=== PATIENT | female | born 1955 | race American Indian/Alaskan Native ===

== ENCOUNTER 2017-02-07 11:36 | Emergency (ER) | payer OTHER, MEDICAID ==
[2017-02-07 11:49] VITALS: BP 144/78
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
--- NOTE | 2017-02-07 13:11 | Cat Scan Report ---
CT HEAD WITHOUT CONTRAST: HISTORY: Head injury. Serial contiguous axial images were obtained through the cranium. Intravenous contrast material was not administered. The ventricles are normal in size and appearance. There is no mass effect or midline shift. No areas of abnormally increased or decreased attenuation are seen. No mass lesion is seen. The mastoid air cells and visualized portions of the sinuses are normal. IMPRESSION: Cranial CT scan within normal limits.
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
--- NOTE | 2017-02-07 13:13 | Cat Scan Report ---
CT SCAN OF THE thoracic SPINE: HISTORY: Back injury. TECHNIQUE: Contiguous 1.25 mm axial images of the thoracic spine were obtained. Sagittal and coronal reformatted images. FINDINGS: There is normal alignment of the thoracic spine. The body, pedicles and posterior ligaments appear normal. No evidence of fracture or subluxation is seen. The spinal canal appears normal. IMPRESSION: Unremarkable CT of the thoracic spine. No acute process is noted.
[2017-02-07] MEDS ORDERED: NORCO 7.5/325 PO ONE (14:00)
[2017-02-07] MEDS ORDERED: FLEXERIL PO ONE (14:00)
[2017-02-07] MEDS ORDERED: NORCO 7.5/325 ONE (14:00)
== END 2017-02-07 16:02 | disposition home or self-care (01) ==
LOC: ED 11:36
DX: S16.1XXA Strain of muscle, fascia and tendon at neck level, initial encounter (principal); I10 Essential (primary) hypertension; Z86.718 Personal history of other venous thrombosis and embolism; Z90.710 Acquired absence of both cervix and uterus; V89.2XXA Person injured in unspecified motor-vehicle accident, traffic, initial encounter; Y93.89 Activity, other specified; Y92.410 Unspecified street and highway as the place of occurrence of the external cause; Y99.8 Other external cause status
CPT/HCPCS: 70450; 72125; 72128

== ENCOUNTER 2018-01-28 22:56 | Inpatient (IN) | payer MEDICAID ==
[2018-01-28] MEDS ORDERED: PEPCID IV ONE ×2 (23:00→23:03)
[2018-01-28] MEDS ORDERED: HURRICAINE ONE 20% TOPICAL SPRAY MM (23:00)
[2018-01-28] MEDS ORDERED: ADRENALIN ONE ×2 (23:03→23:36)
[2018-01-28] MEDS ORDERED: S2 RACEPINEPHRINE 2.25% IH ONE (23:19)
[2018-01-28] MEDS ORDERED: NACL 0.9% 1000 ML 1,000 ML IV ONE (23:58)
[2018-01-28] MEDS ORDERED: ADRENALIN SUB-Q ONE (23:58)
[2018-01-29] MEDS ORDERED: S2 RACEPINEPHRINE 2.25% IH ONE
[2018-01-29] MEDS ORDERED: ADRENALINE P/F IM ONE
--- NOTE | 2018-01-29 00:04 | Emergency Department Report ---
ED Allergic Reaction HPI - General Stated complaint: ALLERGIC REACTION Time Seen by Provider: 01/28/18 23:56 - History of Present Illness Initial Comments: Patient brought in by EMS with sudden onset of severe respiratory distress with swelling of her tongue and throat shortly after using food additive while cooking, which she had never used before. She finds it difficult to talk, and although she has adequate respirations, finds it difficult to breathe, with increased worker breathing because of swelling in the throat. She has a history of hypertension, but she does not take any Ralf inhibitors. She is otherwise been in good general health, and has had no significant allergies such as this previously. EMS found patient in significant distress, started IV, gave patient 50 mg of Benadryl intravenously, supplemental oxygen by mask, transported here rapidly. Patient was in significant distress at time of arrival, and was administered 0.3 mg of epinephrine intramuscularly, followed by 125 mg of Solu-Medrol intravenously, and 20 mg of famotidine intravenously. Patient continued to have significant difficulty breathing, and on initial examination, had moderately significant angioedema of the tongue, with reported by EMS that there was some facial angioedema around the cheeks, but that this had significantly subsided on recheck after initial treatment in the emergency department. Despite patient's difficulty with breathing, she maintained stable vital signs, including stable oxygen saturation at 99-100% on nasal cannula, pulse of 95-99, and blood pressure of 150 160/90. Patient was also given inhalation of racemic epinephrine by face mask, and epinephrine was repeated as well. After approximately 30 minutes, patient was much calmer, was breathing better, and could actually speak words and sentences, which she could not do on arrival. - Related Data Previous Rx's Medication Instructions Recorded Last Taken Type Methocarbamol [Robaxin TAB] 750 mg PO Q8H PRN #20 tablet 02/07/17 Unknown Rx traMADol [Ultram 50 MG tab] 50 mg PO Q4HR PRN #20 tablet 02/07/17 Unknown Rx Allergies Allergy/AdvReac Type Severity Reaction Status Date / Time aspirin Allergy Swelling Verified 02/07/17 11:51 peach Allergy Swelling Verified 02/07/17 11:51 ED Review of Systems ROS: Stated complaint: ALLERGIC REACTION Other details as noted in HPI Comment: All other systems reviewed and negative Constitutional: no symptoms reported ENT: throat pain, other Respiratory: shortness of breath, other (throat and tongue swelling). denies: wheezing Cardiovascular: denies: chest pain (throat and tongue swelling) Endocrine: no symptoms reported Gastrointestinal: as per HPI. denies: abdominal pain, nausea, vomiting Skin: as per HPI. denies: rash Neurological: denies: headache, weakness, paresthesias Psychiatric: denies: anxiety, depression Hematological/Lymphatic: denies: easy bleeding, easy bruising ED Past Medical Hx - Past Medical History Hx Hypertension: Yes Hx Heart Attack/AMI: No Hx Deep Vein Thrombosis: Yes Hx Renal Disease: No Hx Seizures: No Hx HIV: No Additional medical history: hernia - Surgical History Additional Surgical History: HERNIA REPAIR. HYSTERECTOMY. X 2 - Social History Smoking Status: Never Smoker Substance Use Type: Alcohol - Medications Home Medications: Home Medications Medication Instructions Recorded Confirmed Last Taken Type Methocarbamol [Robaxin TAB] 750 mg PO Q8H PRN #20 tablet 02/07/17 Unknown Rx traMADol [Ultram 50 MG tab] 50 mg PO Q4HR PRN #20 tablet 02/07/17 Unknown Rx ED Physical Exam - General General appearance: in distress (difficulty breathing, some trouble managing airway secretions, but good respirations) - Head Head exam: Present: atraumatic, other (obese, plethoric, difficult to assess any true angioedema) - Eye Eye exam: Present: PERRL, EOMI - ENT ENT exam: Present: other (moderate angioedema/swelling of tongue, posterior pharynx appears stable, patient tolerated secretions) - Neck Neck exam: Present: normal inspection (obese, but no mass effect,). Absent: tenderness - Respiratory Respiratory exam: Present: normal lung sounds bilaterally. Absent: wheezes, rales, rhonchi - Cardiovascular Cardiovascular Exam: Present: regular rate - GI/Abdominal GI/Abdominal exam: Present: soft, normal bowel sounds - Rectal Rectal exam: Present: deferred - Extremities Exam Extremities exam: Present: normal inspection - Neurological Exam Neurological exam: Present: alert, oriented X3, CN II-XII intact. Absent: motor sensory deficit - Psychiatric Psychiatric exam: Present: agitated (secondary to respiratory distress) - Skin Skin exam: Present: warm, dry. Absent: erythema, urticaria ED Course Vital Signs 01/28/18 01/28/18 01/28/18 23:00 23:30 23:45 Temperature 98.0 F 98.5 F Pulse Rate 86 92 H 97 H Pulse Rate [ Anterior Bilateral Throughout] Respiratory 23 19 27 H Rate Respiratory Rate [Anterior Bilateral Throughout] Blood Pressure 160/114 Blood Pressure 157/98 157/71 153/70 [Left] O2 Sat by Pulse 96 99 97 Oximetry 01/28/18 01/29/18 01/29/18 23:55 00:05 00:15 Temperature 98.3 F Pulse Rate 93 H 96 H Pulse Rate [ 99 H 99 H Anterior Bilateral Throughout] Respiratory 18 20 Rate Respiratory 24 22 Rate [Anterior Bilateral Throughout] Blood Pressure Blood Pressure 130/68 145/70 [Left] O2 Sat by Pulse 97 98 Oximetry 01/29/18 01/29/18 01/29/18 00:59 01:10 03:15 Temperature 98.0 F Pulse Rate 96 H Pulse Rate [ Anterior Bilateral Throughout] Respiratory 18 27 H Rate Respiratory Rate [Anterior Bilateral Throughout] Blood Pressure Blood Pressure 153/70 [Left] O2 Sat by Pulse 98 97 Oximetry - Reevaluation(s) Reevaluation #1: 01/29/18 00:08 Patient observed continuously from time of arrival, until time that she was breathing normally, tolerating secretions, and speaking full sentences. Oxygen saturation remained stable in the 95-100% throughout, blood pressure remained 140-160 systolic, and pulse rate remained 2090 and 100 throughout. Bedside equipment for emergent airway management from cricothyroid through nasotracheal through standard intubation equipment available, although was not needed during the resuscitation. Reevaluation #2: 01/29/18 03:54 Patient resting currently on recheck, afebrile, vital signs are stable, oxygen saturation 97%, she still has some tongue swelling, but speaks normally, and breathes quite easily, reports no acute distress. ED Medical Decision Making - Lab Data Result diagrams: 01/29/18 00:23 01/29/18 00:23 - Medical Decision Making Patient has had an acute anaphylactic reaction with upper airway swelling, predominantly tongue, but there is some questionable posterior pharyngeal swelling, although portions that I could examine appeared to be fairly normal the back area of the throat. She is significantly improved, has not needed any significant respiratory support, but she will need further observation and continue treatment if she shows signs of recurrence. - Differential Diagnosis anaphylaxis, angioedema Critical care time in (mins) excluding proc time.: 60 Critical care attestation.: If time is entered above; I have spent that time in minutes in the direct care of this critically ill patient, excluding procedure time. Critical Care Time: 60 minutes of critical care time was provided in assessing and stabilizing this patient's acute anaphylactic reaction with airway compromise. ED Disposition Clinical Impression: Acute respiratory distress Anaphylaxis due to food Qualifiers: Encounter type: initial encounter Qualified Code(s): T78.00XA - Anaphylactic reaction due to unspecified food, initial encounter Disposition: OP ADMIT IP TO THIS HOSP Is pt being admited?: Yes Does the pt Need Aspirin: No Condition: Stable Referrals: PRIMARY CARE, [Primary Care Provider] - 3-5 Days Time of Disposition: 03:58
--- NOTE | 2018-01-29 00:39 | XRay Report ---
FINAL REPORT EXAM: XR CHEST 1V AP HISTORY: Allergic Reaction COMPARISON: None available. FINDINGS: Frontal view(s) of the chest obtained. Mild cardiac enlargement. Shallow inspiration.. No gross consolidation or effusion. No pneumothorax. IMPRESSION: Mild cardiac enlargement. Shallow inspiration with crowding of the bronchovascular markings. No gross focal consolidation.
[2018-01-29 00:42] LABS: Hematocrit 26.7 % (30.3-42.9); Hemoglobin 8.1 gm/dl (10.1-14.3); Mean Corpuscular HGB Conc 30 % (30-34); Mean Corpuscular Volume 80 fl (79-97); Platelet Count 431 K/mm3 (140-440); Red Blood Count 3.34 M/mm3 (3.65-5.03)
[2018-01-29 00:53] LABS: Mean Corpuscular Hemoglobin 24 pg (28-32)
[2018-01-29 00:55] LABS: INR 0.95 (0.87-1.13)
[2018-01-29 00:58] LABS: Alanine Aminotransferase 13 units/L (7-56); Albumin 4.3 g/dL (3.9-5); BUN/Creatinine Ratio 13; Blood Urea Nitrogen 10 mg/dL (7-17); Calcium 8.7 mg/dL (8.4-10.2); Hemolysis Index 3
[2018-01-29] MEDS ORDERED: SODIUM CHLORIDE FLUSH SYRINGE 10 ML IV PRN (01:24)
[2018-01-29] MEDS ORDERED: ZOFRAN IV PRN (01:24)
[2018-01-29] MEDS ORDERED: TYLENOL PR PRN (01:24)
--- NOTE | 2018-01-29 01:33 | History and Physical Report ---
History of Present Illness Date of examination: 01/29/18 History of present illness: 62-year-old woman with no medical problems stage she was in the kitchen cooking. She is tasted some of the food and shortly after developed swelling of her her tongue and cheeks, also stated that she felt as if her throat was closing up. EMS was called, the patient was treated with epinephrine, Benadryl , Solu-Medrol and Pepcid. Her symptoms have improved how she is able to handle her saliva, speaking full sentences Review of systems Constitutional: no weight loss, chills Ears, eyes, nose, mouth and throat: no nasal congestion, no nasal discharge, no sinus pressure, no vision change, no red eye. Neck: No neck pain or rigidity. Cardiovascular: no chest pain, palpitations Respiratory: No cough, shortness of breath Gastrointestinal: no abdominal pain, hematochezia Genitourinary : no dysuria, frequency , no hematuria Musculoskeletal: no joint swelling or muscle ache Integumentary: no rash, no pruritis Neurological: no parathesias, no numbness, no focal weakness Endocrine: no cold or heat intolerance, no polyuria or polydipsia Hematologic/Lymphatic: no easy bruising, no easy bleeding, no gland swelling Allergic/Immunologic: no urticaria, no angioedema. PAST MEDICAL HISTORY:None PAST SURGICAL HISTORY: hernia repair SOCIAL HISTORY: denies alcohol, tobacco, drugs FAMILY HISTORY: Hypertension Medications and Allergies Allergies Allergy/AdvReac Type Severity Reaction Status Date / Time aspirin Allergy Swelling Verified 02/07/17 11:51 peach Allergy Swelling Verified 02/07/17 11:51 Home Medications Medication Instructions Recorded Confirmed Last Taken Type Methocarbamol [Robaxin TAB] 750 mg PO Q8H PRN #20 tablet 02/07/17 Unknown Rx traMADol [Ultram 50 MG tab] 50 mg PO Q4HR PRN #20 tablet 02/07/17 Unknown Rx Active Meds: Active Medications Sodium Chloride (Nacl 0.45% 1000 Ml) 1,000 mls @ 75 mls/hr IV DIRECT RASHID Exam - Physical Exam Narrative exam: Gen. appearance: Patient lying in bed, no apparent distress HEENT: Normocephalic, atraumatic, pupils equally round and reactive to light, extraocular movement intact, and no sclericterus,. No JVD or thyromegaly or nodule,neck supple, no carotid bruit ,mucous membranes moist, no exudate or erythema Heart: S1, S2, regular rate and rhythm Lungs: Clear to auscultation bilaterally, breathing comfortable Abdomen: Positive bowel sounds, nontender, nondistended, no organomegaly Extremity: No edema, cyanosis, clubbing Skin: No rash, nodules, warm, dry Neuro: Oriented 3, cranial nerves II-12 intact, speech is fluent, motor and sensory intact - Constitutional Vitals: Temp Pulse Resp BP Pulse Ox 98.0 F 99 H 18 157/98 98 01/29/18 00:59 01/29/18 00:15 01/29/18 01:10 01/28/18 23:00 01/29/18 01:10 Results - Labs CBC & Chem 7: 01/29/18 00:23 01/29/18 00:23 Labs: Abnormal lab results 01/29/18 01/29/18 Range/Units 00:23 00:23 WBC 16.8 H (4.5-11.0) K/mm3 RBC 3.34 L (3.65-5.03) M/mm3 Hgb 8.1 L (10.1-14.3) gm/dl Hct 26.7 L (30.3-42.9) % MCH 24 L (28-32) pg RDW 18.0 H (13.2-15.2) % Potassium 3.4 L (3.6-5.0) mmol/L Carbon Dioxide 19 L (22-30) mmol/L Glucose 202 H (65-100) mg/dL Total Protein 8.6 H (6.3-8.2) g/dL - Imaging and Cardiology EKG: image reviewed Assessment and Plan Assessment Acute Allergic Reaction Hypokalemia Steroid induce leukocytosis Plan Admit to medicine Start high dose steroids, benadryl, pepcid DVT prophalaxis, replete potassium Labs were drawn after steroids given, no antibiotics
[2018-01-29] MEDS: BENADRYL IV SCH ×4 (02:01→22:01)
[2018-01-29] MEDS ORDERED: CHLORASEPTIC MM PRN (02:14)
[2018-01-29 03:57] LABS: Total Cells Counted 100
[2018-01-29 03:58] LABS: Anisocytosis 1+; Band Neutrophils # (Manual) 0.5 K/mm3; Basophils % (Manual) 0 % (0.0-1.8); Eosinophils % (Manual) 0 % (0.0-4.3); Hypochromasia 1+
--- NOTE | 2018-01-29 05:21 | Cat Scan Report ---
FINAL REPORT EXAM: CT NECK W CON HISTORY: Anaphylaxis, residual neck pain, swelling. TECHNIQUE: Axial CT images of the neck were obtained, after the administration of intravenous contrast. Coronal and sagittal reformatted images were also obtained. No prior studies are available for comparison. FINDINGS: The soft tissues of the nasopharynx, hypopharynx, and larynx are symmetric in appearance, without discrete mass lesion. There is moderate diffuse edema and swelling of the tongue, with moderate protrusion superiorly with moderate superior convexity, and resultant moderate to severe narrowing of the oral cavity airway. This is in keeping with angioedema, related to reported and atelectasis. There is no loculated fluid collection seen to suggest abscess. The nasopharyngeal airway and remainder of the airway are patent. The vocal cords are within normal limits. Shotty subcentimeter lymph nodes are scattered throughout the bilateral cervical chains, which do not meet size criteria for pathologic enlargement. The bilateral submandibular and parotid glands are symmetric in appearance, without discrete lesion. 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 There is also mild ( 20-30%) stenosis of the proximal right internal carotid artery. The thyroid gland is homogeneous in appearance, without discrete mass or nodule. The visualized brain parenchyma is unremarkable. The visualized paranasal sinuses and mastoid air cells are clear. IMPRESSION: 1. Moderate diffuse edema and swelling of the tongue, with resultant moderate to severe narrowing of the oral cavity airway. The remainder of the airway is patent. 2. No loculated fluid collection seen to suggest abscess.
[2018-01-29] MEDS: NACL 0.45% 1000 ML 1,000 ML IV SCH ×3 (05:25→22:02)
[2018-01-29] MEDS: PEPCID IV SCH ×2 (09:01→22:01)
[2018-01-29] MEDS: SODIUM CHLORIDE FLUSH SYRINGE 10 ML IV SCH ×2 (09:02→22:02)
[2018-01-29] MEDS ORDERED: ZEMURON IV ONE (13:38)
[2018-01-29] MEDS ORDERED: AMIDATE IV ONE (13:38)
--- NOTE | 2018-01-29 17:52 | Event Note ---
Date: 01/29/18 Pt seen and examined states her tongue swelling improved and noted no drooling will start on clear liquid and will advance as tolerated
[2018-01-30] MEDS: BENADRYL IV SCH ×3 (05:14→17:13)
[2018-01-30 06:07] LABS: BUN/Creatinine Ratio 17; Blood Urea Nitrogen 10 mg/dL (7-17); Calcium 8.5 mg/dL (8.4-10.2); Hemolysis Index 0
[2018-01-30 06:28] LABS: Hematocrit 26.9 % (30.3-42.9); Hemoglobin 8.1 gm/dl (10.1-14.3); Mean Corpuscular HGB Conc 30 % (30-34); Mean Corpuscular Volume 78 fl (79-97); Platelet Count 382 K/mm3 (140-440); Red Blood Count 3.44 M/mm3 (3.65-5.03); Red Cell Distribution Width 18.5 % (13.2-15.2)
[2018-01-30 06:34] LABS: Mean Corpuscular Hemoglobin 23 pg (28-32)
[2018-01-30 07:31] LABS: Band Neutrophils # (Manual) 1.8 K/mm3; Basophils % (Manual) 0 % (0.0-1.8); Eosinophils % (Manual) 0 % (0.0-4.3); Total Cells Counted 100
[2018-01-30 07:32] LABS: Hypochromasia 1+; Platelet Estimate Consistent w Auto
[2018-01-30 07:40] VITALS: BP 127/59
[2018-01-30] MEDS: PEPCID IV SCH (10:50)
[2018-01-30] MEDS ORDERED: TYLENOL PO PRN (10:51)
[2018-01-30] MEDS: SODIUM CHLORIDE FLUSH SYRINGE 10 ML IV SCH (11:20)
[2018-01-30] MEDS: NACL 0.45% 1000 ML 1,000 ML IV SCH (12:11)
--- NOTE | 2018-01-30 14:38 | Discharge Summary ---
Providers - Providers Date of Admission: 01/29/18 01:25 Date of discharge: 01/30/18 Attending physician: MIRNA HAWK Primary care physician: VASILE GALVEZ MD Hospitalization Condition: Stable Hospital course: Discharge diagnosis: Acute Allergic Reaction from ingested food Hypokalemia, replaced Steroid induce leukocytosis Physical exam: GENERAL: well-developed and well-nourished lying on bed appeared to be in no discomfort. HEENT: Normocephalic. Atraumatic. No conjunctival congestion or icterus. Patient has moist mucous membranes. NECK: Supple. Trachea midline. CHEST/LUNGS: Clear to auscultated bilaterally, breathing nonlabored. No wheezes crackles or rhonchi. HEART/CARDIOVASCULAR: Regular in rate and rhythm. S1 and S2 positive. ABDOMEN: Abdomen is soft, nontender. Patient has normal bowel sounds. SKIN: There is no rash. Warm and dry. NEURO: No focal motor deficit. Follows command. MUSCULOSKELETAL: No joint effusion or tenderness. EXTRIMITY: No edema, no cyanosis or clubbing. PSYCH: Cooperative. Disposition: DC-01 TO HOME OR SELFCARE Time spent for discharge: 35 minutes Core Measure Documentation - Palliative Care Palliative Care/ Comfort Measures: Not Applicable - Core Measures Any of the following diagnoses?: none Exam - Constitutional Vitals: Temp Pulse Resp BP Pulse Ox 97.9 F 72 20 127/59 95 01/30/18 04:55 01/30/18 04:55 01/30/18 04:55 01/30/18 04:55 01/30/18 04:55 Plan Activity: advance as tolerated Weight Bearing Status: Weight Bear as Tolerated Diet: low fat, low salt, advance as tolerated Follow up with: PRIMARY CARE, [Primary Care Provider] - 3-5 Days Prescriptions: diphenhydrAMINE [Benadryl CAP] 25 mg PO Q6HR PRN #10 capsule PRN Reason: Allergic Reaction EPINEPHrine [Epipen] 0.3 mg IJ ONCE #1 auto.injct predniSONE [Deltasone] 50 mg PO QDAY #3 tab
== END 2018-01-30 19:35 | disposition home or self-care (01) | DRG 916 ==
LOC: ED 22:56 → 4A 01-29 01:25
PROVIDERS: ADMIT Internal Medicine; ATTEND Internal Medicine
DX: T78.00XA Anaphylactic reaction due to unspecified food, initial encounter (principal); E87.6 Hypokalemia; D72.828 Other elevated white blood cell count; T38.0X5A Adverse effect of glucocorticoids and synthetic analogues, initial encounter; R22.9 Localized swelling, mass and lump, unspecified; I10 Essential (primary) hypertension; Z88.6 Allergy status to analgesic agent; Y92.89 Other specified places as the place of occurrence of the external cause; Z86.718 Personal history of other venous thrombosis and embolism; Z90.710 Acquired absence of both cervix and uterus; Z72.89 Other problems related to lifestyle
CPT/HCPCS: 36415; 70491; 71045; 80048; 80053; 82962; 85007; 85025; 85610; 93005; 93010; 94640; 99291; J0171; J1200; J2930; J7030; Q9967

== ENCOUNTER 2019-08-01 06:07 | Emergency (ER) | payer MEDICAID ==
[2019-08-01 07:33] LABS: Basophils % (Auto) 0.6 % (0.0-1.8); Eosinophils # (Auto) 0.1 K/mm3 (0.0-0.4); Eosinophils % (Auto) 1.2 % (0.0-4.3); Hematocrit 24.8 % (30.3-42.9); Hemoglobin 7.6 gm/dl (10.1-14.3); Lymphocytes # (Auto) 1.6 K/mm3 (1.2-5.4); Lymphocytes % (Auto) 20.1 % (13.4-35.0); Mean Corpuscular HGB Conc 31 % (30-34); Mean Corpuscular Volume 75 fl (79-97); Monocytes # (Auto) 0.4 K/mm3 (0.0-0.8); Monocytes % (Auto) 5.2 % (0.0-7.3); Platelet Count 387 K/mm3 (140-440); Red Cell Distribution Width 18.8 % (13.2-15.2)
[2019-08-01 07:51] LABS: BUN/Creatinine Ratio 18; Blood Urea Nitrogen 11 mg/dL (7-17); Calcium 8.8 mg/dL (8.4-10.2); Hemolysis Index 0
[2019-08-01] MEDS ORDERED: HYDROcodone/ACETAMINOPHEN 5-325 MG TAB PO ONE (08:31)
--- NOTE | 2019-08-01 09:50 | Emergency Department Report ---
ED Abdominal Pain HPI - General Chief Complaint: Vaginal Bleeding Stated Complaint: WEAKNESS/VAG BLEEDING Time Seen by Provider: 08/01/19 08:11 Source: patient Mode of arrival: Ambulatory Limitations: No Limitations - History of Present Illness Initial Comments: [id number] -[place] female patient with history of bowel obstruction due to incarcerated hernia and hysterectomy right ovary removal presents with complaints of increased vaginal bleeding, lower abdominal pain, and dizziness for the past 3 days. Patient states she follows with Dr. Valadez, DIVISION ORDER TECHNICIAN. She states that she is being evaluated for fibroids and vaginal bleeding for the pa st few months. Patient states her last follow-up was 3 weeks ago where she was placed on medroxyprogesterone to control her vaginal bleeding. Patient states her bleeding has worsened being on this medication. She states yesterday he vaginal bleeding became heavier and she used about 6 pads. She states the bleeding is not heavy today and denies any shortness of breath, chest pain, vision changes, headache, numbness/tingling/weakness, confusion, or trouble with speech. Patient states the pain is suprapubic and cramping and rates the pain at a 6/10 in severity. She denies any urinary symptoms, hematochezia/melena, or nausea/vomiting. Patient states that Dr. Valadez informed her if medroxyp rogesterone did not work that she would schedule her for a hysterectomy for the end of July beginning of August. Location: suprapubic Severity scale (0 -10): 6 Quality: cramping Consistency: constant Improves With: nothing Worsens With: nothing Associated Symptoms: denies other symptoms Treatments Prior to Arrival: NSAIDs - Related Data Home Medications Medication Instructions Recorded Confirmed Last Taken PROzac 5 mg PO DAILY 01/29/18 01/29/18 Unknown Previous Rx's Medication Instructions Recorded Last Taken Type methOCARBAMOL [Robaxin TAB] 750 mg PO Q8H PRN #20 tablet 02/07/17 Unknown Rx traMADoL [Ultram 50 MG tab] 50 mg PO Q4HR PRN #20 tablet 02/07/17 Unknown Rx EPINEPHrine [Epipen] 0.3 mg IJ ONCE #1 auto.injct 01/30/18 Unknown Rx diphenhydrAMINE [Benadryl CAP] 25 mg PO Q6HR PRN #10 capsule 01/30/18 Unknown Rx predniSONE [Deltasone] 50 mg PO QDAY #3 tab 01/30/18 Unknown Rx Nitrofurantoin Macrocrystal 100 mg PO BID 5 Days #10 capsule 08/01/19 Unknown Rx [Nitrofurantoin] Allergies Allergy/AdvReac Type Severity Reaction Status Date / Time aspirin Allergy Swelling Verified 02/07/17 11:51 peach Allergy Swelling Verified 02/07/17 11:51 ED Review of Systems ROS: Stated complaint: WEAKNESS/VAG BLEEDING Other details as noted in HPI ED Past Medical Hx - Past Medical History Previous Medical History?: Yes Hx Hypertension: Yes Hx Heart Attack/AMI: No Hx Diabetes: No Hx Deep Vein Thrombosis: Yes Hx Renal Disease: No Hx Seizures: No Hx HIV: No Additional medical history: hernia - Surgical History Past Surgical History?: Yes Hx Appendectomy: Yes Additional Surgical History: HERNIA REPAIR. HYSTERECTOMY. X 2 - Social History Smoking Status: Never Smoker Substance Use Type: None - Medications Home Medications: Home Medications Medication Instructions Recorded Confirmed Last Taken Type methOCARBAMOL [Robaxin TAB] 750 mg PO Q8H PRN #20 tablet 02/07/17 01/29/18 Unknown Rx traMADoL [Ultram 50 MG tab] 50 mg PO Q4HR PRN #20 tablet 02/07/17 01/29/18 Unknown Rx PROzac 5 mg PO DAILY 01/29/18 01/29/18 Unknown History EPINEPHrine [Epipen] 0.3 mg IJ ONCE #1 auto.injct 01/30/18 Unknown Rx diphenhydrAMINE [Benadryl CAP] 25 mg PO Q6HR PRN #10 capsule 01/30/18 Unknown Rx predniSONE [Deltasone] 50 mg PO QDAY #3 tab 01/30/18 Unknown Rx Nitrofurantoin Macrocrystal 100 mg PO BID 5 Days #10 capsule 08/01/19 Unknown Rx [Nitrofurantoin] ED Physical Exam - General Limitations: No Limitations ED Course Vital Signs 08/01/19 08/01/19 08/01/19 06:11 09:35 09:46 Temperature 98.5 F Pulse Rate 79 68 69 Respiratory 18 16 14 Rate Blood Pressure 144/51 143/65 Blood Pressure 143/65 [Right] O2 Sat by Pulse 99 100 100 Oximetry 08/01/19 08/01/19 08/01/19 09:52 10:22 10:30 Temperature Pulse Rate Respiratory 20 Rate Blood Pressure 143/65 143/65 Blood Pressure [Right] O2 Sat by Pulse 100 96 99 Oximetry 08/01/19 08/01/19 08/01/19 10:46 11:06 11:16 Temperature Pulse Rate 74 Respiratory 14 Rate Blood Pressure 143/65 143/65 139/43 Blood Pressure [Right] O2 Sat by Pulse 100 99 99 Oximetry ED Medical Decision Making - Lab Data Result diagrams: 08/01/19 06:50 08/01/19 06:50 - Radiology Data Radiology results: report reviewed CT head/brain wo con INDICATION / CLINICAL INFORMATION: 60 years Male; possible new onset seizure. TECHNIQUE: Routine CT head without contrast. All CT scans at this location are performed using CT dose reduction for ALARA by means of automated exposure control. COMPARISON: None. FINDINGS: BRAIN / INTRACRANIAL CONTENTS: No acute hemorrhage, mass effect, midline shift, hydrocephalus, or acute, large territorial infarct. No chronic infarct or atrophy appreciated. There are mild areas of decreased attenuation in the white matter of the cerebral hemispheres. These are nonspecific findings and may be related to microangiopathy (hypertension, diabetes, atherosclerosis), given the patient's age. CRANIOCERVICAL JUNCTION: No significant abnormality. ORBITS: No significant abnormality of visualized orbits. SINUSES / MASTOIDS: No significant abnormality the visualized paranasal sinuses or mastoid air cells. ADDITIONAL FINDINGS: None. IMPRESSION: 1. No focal mass, hemorrhage, hydrocephalus, or acute, large territorial infarct. - Medical Decision Making 63-year-old female patient here with complaints of increased vaginal bleeding, dizziness, and lower abdominal pain. Patient is currently following with Dr. Valadez, DIVISION ORDER TECHNICIAN, for vaginal bleeding. Patient states her vaginal bleeding has been worsening over the past few days and now she feels a little dizzy and weak. She denies any current dizziness while here in the ED. Hemoglobin noted to be 7.6. UA shows UTI. Labs otherwise are WNL. Ultrasound shows thickened endometrial stripepatient states this was noted on her previous exam with her DIVISION ORDER TECHNICIAN and that cancer was ruled out via biopsy. Discussed patient with Dr. Diallo, DIVISION ORDER TECHNICIAN from DR. Valadez office-states no previous hemoglobin noted and ther e is system except a hemoglobin in November 2016. She states patient is stable for follow-up in office. Patient states she refuses any blood to her evangelical beliefs. Vitals are WNL. Will DC patient home with treatment for UTI. Patient to follow-up with her DIVISION ORDER TECHNICIAN within the next 3 days. Discussed very strict return precautions in great detail with patient states understanding. Critical care attestation.: If time is entered above; I have spent that time in minutes in the direct care of this critically ill patient, excluding procedure time. ED Disposition Clinical Impression: Cystitis, Vaginal bleeding Disposition: DC- TO HOME OR SELFCARE Is pt being admited?: No Condition: Stable Instructions: Urinary Tract Infection in Women (ED) Additional Instructions: Please follow-up with your DIVISION ORDER TECHNICIAN within 3-5 days. Return to the emergency department if any new or worsening symptoms occur Prescriptions: Nitrofurantoin Macrocrystal [Nitrofurantoin] 100 mg PO BID 5 Days #10 capsule Referrals: PRIMARY CARE, [Primary Care Provider] - 3-5 Days
[2019-08-01 09:52] LABS: INR 1.08 (0.87-1.13)
[2019-08-01 09:53] LABS: Partial Thromboplastin Time 25.5 Sec. (24.2-36.6)
[2019-08-01 10:00] LABS: Alanine Aminotransferase 10 units/L (7-56); Albumin 4.2 g/dL (3.9-5)
[2019-08-01 10:02] LABS: Bilirubin,Direct < 0.2 mg/dL (0-0.2)
--- NOTE | 2019-08-01 11:17 | Ultrasound Report ---
ULTRASOUND PELVIS INDICATION: Vaginal bleeding for 2 days. Postmenopausal. TECHNIQUE: Transvaginal. Duplex Color Doppler used: Yes. COMPARISON: None available FINDINGS: Uterus: Enlarged, measuring 9.3 x 5.1 x 6.8 cm. Endometrial complex: Thickened, measuring 10 mm. Mass lesions: Multiple probable uterine fibroids are seen measuring up to 2.75 cm. Additional findings: None. Right Ovary: Size: 2.7 x 1.6 x 2.2 cm Blood flow: Normal. Cyst or mass: There is a 1.4 cm simple appearing cyst. No solid lesions are identified. Left Ovary: Size: 2.6 x 1.1 x 2.4 cm Blood flow: Normal. Cyst or mass: None. Urinary Bladder: Normal. Free Fluid: None. Additional Findings: None. IMPRESSION: 1. Endometrial thickening in a postmenopausal patient is suspicious for malignancy until proven other bolton. A LUMBER PULLER consultation is recommended for further evaluation. 2. Multiple probable uterine fibroids as above. 3. Simple right ovarian cyst as above is likely benign. A follow-up pelvic ultrasound in one year is recommended. Signer Name: Jose L Diaz MD Signed: 08/01/2019 11:12 AM Workstation Name: [id number]
[2019-08-01 11:43] LABS: Bilirubin,Urine NEG (Negative); Blood,Urine LG (Negative); Color,Urine Yellow (Yellow); Mucus,Urine 1+ /HPF; RBC,Urine > 182.0 /HPF (0.0-6.0); Urobilinogen,Urine < 2.0 mg/dL (<2.0)
[2019-08-01] MEDS ORDERED: cefTRIAXone/NS 1 GM/50 ML 1 GM/50 ML BAG IV ONE (12:22)
[2019-08-01] MEDS ORDERED: LIDOCAINE-MPF (1%) 10 MG/1 ML VIAL 5 ML INFILTRATI ONE (12:27)
[2019-08-01 14:42] VITALS: BP 119/53
== END 2019-08-01 13:40 | disposition home or self-care (01) ==
LOC: ED 06:07
DX: N30.90 Cystitis, unspecified without hematuria (principal); I10 Essential (primary) hypertension; Z86.718 Personal history of other venous thrombosis and embolism; Z90.49 Acquired absence of other specified parts of digestive tract; Z90.710 Acquired absence of both cervix and uterus; Z79.899 Other long term (current) drug therapy; Z88.6 Allergy status to analgesic agent; Z91.018 Allergy to other foods
CPT/HCPCS: 36415; 76830; 80048; 80076; 81001; 84484; 85025; 85610; 85730; 86900; 86901; 87086; 93005; 93010; 96372; 99284; J0696

== ENCOUNTER 2019-09-18 09:41 | Emergency (ER) | payer MEDICAID ==
--- NOTE | 2019-09-18 11:39 | XRay Report ---
RIGHT FOOT 2 VIEW(S) INDICATION / CLINICAL INFORMATION: Pain on top of foot near fourth and fifth metatarsals COMPARISON: None available. FINDINGS: No acute skeletal abnormality. Mild to moderate changes of osteoarthrosis at the interphalangeal join ts. Plantar calcaneal and Achilles enthesophytes are noted. No significant soft tissue swelling, subc utaneous emphysema or embedded radiopaque foreign body. Signer Name: Elliot Solomon MD Signed: 09/18/2019 11:35 AM Workstation Name: [id number]
[2019-09-18] MEDS ORDERED: dexAMETHasone 4 MG/ML VIAL IM ONE (11:49)
--- NOTE | 2019-09-18 11:49 | Emergency Department Report ---
ED General Adult HPI - General Chief complaint: Extremity Injury, Lower Stated complaint: RT FOOT PAIN Time Seen by Provider: 09/18/19 11:13 Source: patient Mode of arrival: Ambulatory Limitations: No Limitations - History of Present Illness Initial comments: 63-year-old lady with a prior diagnosis of rheumatoid arthritis. She is not on any current medications. She noticed a new Mayra area of the dorsum of her right foot. It has been present for a month. It becomes inflamed when she walks around. She's had no fever or chills. She does not report any systemic symptoms. She's not had any follow-up for her rheumatoid arthritis nor seen a aircraft steel fabricator or a primary care physician over this period. -: Gradual, month(s) Location: right (foot) Radiation: non-radiation Consistency: intermittent Improves with: none Worsens with: none Associated Symptoms: denies other symptoms - Related Data Home Medications Medication Instructions Recorded Confirmed Last Taken PROzac 5 mg PO DAILY 01/29/18 01/29/18 Unknown Previous Rx's Medication Instructions Recorded Last Taken Type methOCARBAMOL [Robaxin TAB] 750 mg PO Q8H PRN #20 tablet 02/07/17 Unknown Rx traMADoL [Ultram 50 MG tab] 50 mg PO Q4HR PRN #20 tablet 02/07/17 Unknown Rx EPINEPHrine [Epipen] 0.3 mg IJ ONCE #1 auto.injct 01/30/18 Unknown Rx diphenhydrAMINE [Benadryl CAP] 25 mg PO Q6HR PRN #10 capsule 01/30/18 Unknown Rx predniSONE [Deltasone] 50 mg PO QDAY #3 tab 01/30/18 Unknown Rx Nitrofurantoin Macrocrystal 100 mg PO BID 5 Days #10 capsule 08/01/19 Unknown Rx [Nitrofurantoin] traMADoL [Ultram 50 MG tab] 50 mg PO Q6HR PRN #10 tablet 09/18/19 Unknown Rx Allergies Allergy/AdvReac Type Severity Reaction Status Date / Time aspirin Allergy Swelling Verified 02/07/17 11:51 peach Allergy Swelling Verified 02/07/17 11:51 ED Review of Systems ROS: Stated complaint: RT FOOT PAIN Other details as noted in HPI Constitutional: denies: chills, fever Eyes: denies: eye pain, eye discharge, vision change ENT: denies: ear pain, throat pain Respiratory: denies: cough, shortness of breath, wheezing Cardiovascular: denies: chest pain, palpitations Endocrine: no symptoms reported Gastrointestinal: denies: abdominal pain, nausea, diarrhea Genitourinary: denies: urgency, dysuria, discharge Musculoskeletal: as per HPI, arthralgia. denies: back pain, joint swelling Skin: denies: rash, lesions Neurological: denies: headache, weakness, paresthesias Psychiatric: denies: anxiety, depression Hematological/Lymphatic: denies: easy bleeding, easy bruising ED Past Medical Hx - Past Medical History Previous Medical History?: Yes Hx Hypertension: Yes Hx Heart Attack/AMI: No Hx Diabetes: No Hx Deep Vein Thrombosis: Yes Hx Renal Disease: No Hx Seizures: No Hx HIV: No Additional medical history: hernia. Rheumatoid arthritis - Surgical History Past Surgical History?: Yes Hx Appendectomy: Yes Additional Surgical History: HERNIA REPAIR. HYSTERECTOMY. X 2 - Social History Smoking Status: Never Smoker Substance Use Type: Alcohol, Other - Medications Home Medications: Home Medications Medication Instructions Recorded Confirmed Last Taken Type methOCARBAMOL [Robaxin TAB] 750 mg PO Q8H PRN #20 tablet 02/07/17 01/29/18 Unknown Rx traMADoL [Ultram 50 MG tab] 50 mg PO Q4HR PRN #20 tablet 02/07/17 01/29/18 Unknown Rx PROzac 5 mg PO DAILY 01/29/18 01/29/18 Unknown History EPINEPHrine [Epipen] 0.3 mg IJ ONCE #1 auto.injct 01/30/18 Unknown Rx diphenhydrAMINE [Benadryl CAP] 25 mg PO Q6HR PRN #10 capsule 01/30/18 Unknown Rx predniSONE [Deltasone] 50 mg PO QDAY #3 tab 01/30/18 Unknown Rx Nitrofurantoin Macrocrystal 100 mg PO BID 5 Days #10 capsule 08/01/19 Unknown Rx [Nitrofurantoin] traMADoL [Ultram 50 MG tab] 50 mg PO Q6HR PRN #10 tablet 09/18/19 Unknown Rx ED Physical Exam - General Limitations: No Limitations General appearance: alert, in no apparent distress - Head Head exam: Present: atraumatic, normocephalic - Eye Eye exam: Present: normal appearance. Absent: scleral icterus - ENT ENT exam: Present: mucous membranes moist - Neck Neck exam: Present: normal inspection - Respiratory Respiratory exam: Present: normal lung sounds bilaterally. Absent: respiratory distress - Cardiovascular Cardiovascular Exam: Present: regular rate, normal rhythm. Absent: systolic murmur, diastolic murmur, rubs, gallop - GI/Abdominal GI/Abdominal exam: Present: soft, normal bowel sounds. Absent: distended, tenderness, guarding - Extremities Exam Extremities exam: Present: normal inspection, other (there is a nodule of the dorsum of the right foot lateral aspect mid metatarsal, appears consistent with rheumatoid nodule. It is slightly warm but not fluctuant.). Absent: calf tenderness - Back Exam Back exam: Present: normal inspection - Neurological Exam Neurological exam: Present: alert, oriented X3, CN II-XII intact. Absent: motor sensory deficit - Psychiatric Psychiatric exam: Present: normal affect, normal mood - Skin Skin exam: Present: warm, dry, intact, normal color. Absent: rash ED Course Vital Signs 09/18/19 09:44 Temperature 98 F Pulse Rate 73 Respiratory 20 Rate Blood Pressure 142/61 O2 Sat by Pulse 98 Oximetry Critical care attestation.: If time is entered above; I have spent that time in minutes in the direct care of this critically ill patient, excluding procedure time. ED Disposition Clinical Impression: Foot pain, right, Rheumatoid nodule Disposition: - TO HOME OR SELFCARE Is pt being admited?: No Does the pt Need Aspirin: No Condition: Stable Instructions: Arthralgia (ED), Rheumatoid Arthritis (ED) Additional Instructions: I would recommend further evaluation with an arthritis specialist and a aircraft steel fabricator. Rx as needed for soreness. Prescriptions: traMADoL [Ultram 50 MG tab] 50 mg PO Q6HR PRN #10 tablet PRN Reason: Pain Time of Disposition: 11:48
[2019-09-18 12:11] VITALS: BP 148/71
== END 2019-09-18 12:30 | disposition home or self-care (01) ==
LOC: ED 09:41
DX: M79.671 Pain in right foot (principal); M06.371 Rheumatoid nodule, right ankle and foot; I10 Essential (primary) hypertension; M06.80 Other specified rheumatoid arthritis, unspecified site; Z90.49 Acquired absence of other specified parts of digestive tract; Z98.890 Other specified postprocedural states; Z79.899 Other long term (current) drug therapy; Z88.6 Allergy status to analgesic agent; Z91.018 Allergy to other foods
CPT/HCPCS: 73620; 96372; 99283; J1100

== ENCOUNTER 2019-10-19 10:49 | Emergency (ER) | payer MEDICAID ==
[2019-10-19] MEDS ORDERED: ALBUTEROL 2.5 MG/3 ML NEBU IH ONE ×2 (11:25→15:55)
[2019-10-19] MEDS ORDERED: BENZONATATE 100 MG CAP PO ONE ×2 (11:25→15:55)
--- NOTE | 2019-10-19 11:27 | Emergency Department Report ---
Chief Complaint: Upper Respiratory Infection Stated Complaint: COLD SX Time Seen by Provider: 10/19/19 11:25 - HPI History of Present Illness: 63 y/o fem p.w cough, mucous production, resolved dizzyness feeling warm at home weakness x 1 wee gcs 15 motor exam non focal lungs clear steady gait xr chest ekg albuterol johnnie duarte for minor care MSE screening note: Focused history and physical exam performed. Due to findings the following was ordered: ED Disposition for MSE Condition: Stable
--- NOTE | 2019-10-19 12:18 | XRay Report ---
CHEST 2 VIEWS INDICATION: cough bronchitis. COMPARISON: 01/29/2018. FINDINGS: Support devices: None. Heart: Mild cardiac enlargement. Lungs/Pleura: No acute air space or interstitial disease. Lung volumes are diminished. No significant pleural effusion. IMPRESSION: No acute findings. Signer Name: Sina Bobby MD Signed: 10/19/2019 12:14 PM Workstation Name: [id number]
[2019-10-19 16:46] VITALS: BP 130/73
--- NOTE | 2019-10-19 17:29 | Emergency Department Report ---
Minor Respiratory - HPI Chief Complaint: Upper Respiratory Infection Stated Complaint: COLD SX Time Seen by Provider: 10/19/19 11:25 Duration: 3 Days Pain Location: Nose Severity: moderate Minor Respiratory: Yes Rhinorrhea, Yes Able to Tolerate Fluids, Yes Cough, Yes Sick Contacts, Yes Shortness of Breath, Yes Fever, No Sore Throat, No Ear Pain, No Hemoptysis, No Chest Pain Other History: This is a 63-year-old -[place] female who presents to the emergency room with cough, chills, fever, shortness of breath for 3 days. Patient reports similar symptoms 2 weeks ago which resolved with DayQuil and NyQuil. Patient states same symptoms returned 2 days ago. She is a nonsmoker. Past medical history of DVT, hypertension, rheumatoid arthritis, and hernia. She denies chest pain, weakness, wheezing, nausea, vomiting, abdominal pain, or diarrhea. ED Review of Systems ROS: Stated complaint: COLD SX Other details as noted in HPI Constitutional: chills. denies: fever ENT: congestion. denies: ear pain, throat pain Respiratory: cough. denies: shortness of breath, wheezing Cardiovascular: denies: chest pain, palpitations Gastrointestinal: denies: abdominal pain, nausea, diarrhea Skin: denies: rash, lesions Neurological: denies: headache, weakness, paresthesias Psychiatric: denies: anxiety, depression ED Past Medical Hx - Past Medical History Previous Medical History?: Yes Hx Hypertension: Yes Hx Heart Attack/AMI: No Hx Diabetes: No Hx Deep Vein Thrombosis: Yes Hx Renal Disease: No Hx Seizures: No Hx HIV: No Additional medical history: hernia. Rheumatoid arthritis - Surgical History Past Surgical History?: Yes Hx Appendectomy: Yes Additional Surgical History: HERNIA REPAIR. HYSTERECTOMY. X 2 - Social History Smoking Status: Never Smoker Substance Use Type: None - Medications Home Medications: Home Medications Medication Instructions Recorded Confirmed Last Taken Type methOCARBAMOL [Robaxin TAB] 750 mg PO Q8H PRN #20 tablet 02/07/17 01/29/18 Unknown Rx traMADoL [Ultram 50 MG tab] 50 mg PO Q4HR PRN #20 tablet 02/07/17 01/29/18 Unknown Rx PROzac 5 mg PO DAILY 01/29/18 01/29/18 Unknown History EPINEPHrine [Epipen] 0.3 mg IJ ONCE #1 auto.injct 01/30/18 Unknown Rx diphenhydrAMINE [Benadryl CAP] 25 mg PO Q6HR PRN #10 capsule 01/30/18 Unknown Rx predniSONE [Deltasone] 50 mg PO QDAY #3 tab 01/30/18 Unknown Rx Nitrofurantoin Macrocrystal 100 mg PO BID 5 Days #10 capsule 08/01/19 Unknown Rx [Nitrofurantoin] traMADoL [Ultram 50 MG tab] 50 mg PO Q6HR PRN #10 tablet 09/18/19 Unknown Rx Albuterol INH(or & Nicu Only) 2 puff IH QID PRN #8.5 gram 10/19/19 Unknown Rx [ProAir HFA Inhaler] Azithromycin [Zithromax Z-CARLOS] 250 mg PO DAILY #6 tablet 10/19/19 Unknown Rx Benzonatate [Tessalon Perles] 100 mg PO Q8HR PRN #30 capsule 10/19/19 Unknown Rx Minor Respiratory Exam - Exam General: Vital signs noted. No distress. Alert and acting appropriately. HEENT: Yes Moist Mucous Membranes, Yes Rhinorrhea (turbinates congested with clear discharge), No Pharyngeal Erythema, No Pharyngeal Exudates, No Conjuctival Injection, No Frontal Tenderness, No Maxillary Tenderness Ear: Neither TM Bulge, Neither TM Erythema, Neither EAC Pain, Neither EAC Discharge Neck: Yes Supple, No Adenopathy Lungs: Yes Good Air Exchange, Yes Cough, No Wheezes, No Ronchi, No Stridor, No Labored Respirations, No Retractions, No Use of Accessory Muscles, No Other Abnormal Lung Sounds Heart: Yes Regular, No Murmur Abdomen: Yes Normal Bowel Sounds, No Tenderness, No Peritoneal Signs Skin: No Rash, No Edema Neurologic: Alert and oriented, no deficits. Musculoskeletal: Unremarkable. ED Course Vital Signs 10/19/19 10/19/19 11:26 16:43 Temperature 98.1 F 98.1 F Pulse Rate 88 72 Respiratory 20 18 Rate Blood Pressure 153/66 Blood Pressure 130/73 [Right] O2 Sat by Pulse 98 98 Oximetry ED Medical Decision Making - EKG Data -: No EKG Interpreted by Me (EKG interpreted by attending) EKG shows normal: sinus rhythm Rate: normal - Radiology Data Radiology results: report reviewed CHEST 2 VIEWS INDICATION: cough bronchitis. COMPARISON: 01/29/2018. FINDINGS: Support devices: None. Heart: Mild cardiac enlargement. Lungs/Pleura: No acute air space or interstitial disease. Lung volumes are diminished. No significant pleural effusion. IMPRESSION: No acute findings. - Medical Decision Making 63 y.o. female that presents with cough, chills, and fever for 2 weeks. Patient examined by me and stable. VSS and patient in no acute distress. Chest x-ray obtained with no acute cardiopulmonary findings. EKG interpreted by attending and sinus rhythm with no STEMI. Patient given breathing treatments prior to assessment. No history of immunocompromise. Nontoxic appearance. Patient reports feeling better. Given History and Exam I have low suspicion for cause of STOREPERSON, Epiglottitis, Bacterial Tracheitis, or Strep throat. Start short course of antibiotics, cough suppressant, and inhaler for bronchitis. Discharge home with prompt outpatient PCP follow up; return precautions discussed. Critical care attestation.: If time is entered above; I have spent that time in minutes in the direct care of this critically ill patient, excluding procedure time. ED Disposition Clinical Impression: Cough in adult, Chills without fever, Bronchitis Disposition: TO HOME OR SELFCARE Is pt being admited?: No Condition: Stable Instructions: Acute Bronchitis (ED) Additional Instructions: Increase fluid intake and rest. Wash hands frequently. Continue taking Tylenol or ibuprofen to control fever. F/U with Primary Care Provider. Return to ER if fever, shortness of breath, or difficulty breathing after 48 hours of supportive care. Prescriptions: Albuterol INH(or & Nicu Only) [ProAir HFA Inhaler] 2 puff IH QID PRN #8.5 gram PRN Reason: Shortness Of Breath Benzonatate [Tessalon Perles] 100 mg PO Q8HR PRN #30 capsule PRN Reason: Cough Azithromycin [Zithromax Z-CARLOS] 250 mg PO DAILY #6 tablet Referrals: [facility] [Outside] - 3-5 Days [facility] [Outside] - 3-5 Days [facility] [Outside] - 3-5 Days JAYRO CHATMAN MD [Staff Physician] - 3-5 Days Time of Disposition: 17:47
== END 2019-10-19 18:03 | disposition home or self-care (01) ==
LOC: ED 10:49
DX: J40 Bronchitis, not specified as acute or chronic (principal); I10 Essential (primary) hypertension; Z86.718 Personal history of other venous thrombosis and embolism; Z79.899 Other long term (current) drug therapy; Z88.6 Allergy status to analgesic agent; Z88.8 Allergy status to other drugs, medicaments and biological substances
CPT/HCPCS: 71046; 93005; 93010; 94640

== ENCOUNTER 2021-01-09 10:57 | Emergency (ER) | payer MEDICAID ==
[2021-01-09 11:54] VITALS: BP 158/71
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
== END 2021-01-09 14:20 | disposition home or self-care (01) ==
LOC: ED 10:57
DX: M89.8X2 Other specified disorders of bone, upper arm (principal); M77.9 Enthesopathy, unspecified; I10 Essential (primary) hypertension; Z88.8 Allergy status to other drugs, medicaments and biological substances; Z79.899 Other long term (current) drug therapy; Z90.710 Acquired absence of both cervix and uterus; Z98.890 Other specified postprocedural states; Z90.49 Acquired absence of other specified parts of digestive tract; Z91.018 Allergy to other foods; V89.2XXA Person injured in unspecified motor-vehicle accident, traffic, initial encounter; Y92.410 Unspecified street and highway as the place of occurrence of the external cause; Y93.89 Activity, other specified; Y99.8 Other external cause status

== ENCOUNTER 2022-03-02 10:37 | Emergency (ER) | payer MEDICARE ==
[2022-03-02 11:44] VITALS: BP 152/63
== END 2022-03-02 13:00 | disposition left against medical advice (07) ==
LOC: ED 10:37
DX: K46.9 Unspecified abdominal hernia without obstruction or gangrene (principal); Z53.21 Procedure and treatment not carried out due to patient leaving prior to being seen by health care provider